=== PATIENT | male | born 1945 | race Caucasian/White ===

== ENCOUNTER → 2019-09-23 | Outpatient (CLI) | payer MEDICARE ==
--- NOTE | 2019-09-23 09:28 | Diagnostic Imaging Report ---
Indication: Pain in both hands 2 views of each hand are obtained There is no fracture or dislocation. There is some narrowing of the 1st carpometacarpal joint of the left hand. There are some narrowing of the interphalangeal joints of the DIP joints of the fingers of both hands. IMPRESSION: Mild osteoarthritis. No acute abnormality seen. Dictated by: Dictated on workstation # [id number]
== END ==
LOC: EDSEX 08:49 → RAD FS 08:49
PROVIDERS: ATTEND Family Medicine
DX: M19.041 Primary osteoarthritis, right hand (principal); M19.042 Primary osteoarthritis, left hand